=== PATIENT | male | born 1980 | race Two or more races ===

== ENCOUNTER 2024-09-09 08:09 | Emergency (ER) | payer SELFPAY ==
[2024-09-09 08:17] VITALS: BMI 22.7
--- NOTE | 2024-09-09 08:34 | EDNOTE_ITS ---
ED Medical Clearance RME/HPI General Chief complaint: General Adult/Misc Complain Stated complaint: MEDICAL CLEARANCE Time Seen by Provider: 09/09/24 08:18 Arrival date/time: 09/09/24 08:09 RME / HPI RME / HPI Narrative: 44 year old male presents to the ED [facility] for medical clearance for incarceration. Per officers, patient was noted to have elevated blood pressure reading in senior care and advised to come to the ED for clearance. While in the ED patient has no complaints and reports he would not have come to the ED otherwise. Review of Systems Review of Systems Systems Reviewed: All systems reviewed, normal except as documented Narrative Review of Systems: GEN: No fever, no chills EYES: No discharge, no pain HEENT: No ear pain, no congestion, no sore throat PULM: No shortness of breath, no cough, no congestion CV: No chest pain, no palpitations GI: No nausea, no vomiting, no diarrhea, no pain, no constipation : No frequency, no urgency, no dysuria MUSC/SKEL: No joint pain, no back pain SKIN: No rash NEURO: No weakness, no headache Past Medical History Social History SMOKING STATUS: Unknown if ever smoked ED Exam Narrative Physical exam: GENERAL APPEARANCE:? alert and oriented x 4, well-developed, well-nourished, no acute distress HEENT: normocephalic, atraumatic NECK: supple LUNGS: no respiratory distress, normal effort HEART: good peripheral perfusion ABDOMEN: non distended EXTREMITIES:? atraumatic NEUROLOGIC: awake; alert and oriented x4; cranial nerves II-XII grossly intact PSYCHIATRIC:? appropriate mood and affect SKIN: warm, dry, normal color; no rashes Course Quality Measures none Medical Clearance MDM Narrative [facility] Narrative:: Arlen Victor am scribing for and in the presence of Dr. Moya. Patient data External records reviewed:: [facility] previous records (Per EMR, there are no previous visits for review ) Clinical information provided by:: patient and law enforcement Social determinants that could affect healthcare access:: none Patient has the following chronic illnesses:: History unknown, patient did not report any chronic medical hx How is presenting disease/condition affected by chronic disease/condition?: no chronic disease Evaluation data The following diagnostics were reviewed and interpreted by me:: other (specify) (No diagnostic testing performed) Lab and/or radiology exams considered but not ordered:: None Interpretation Summary: N/A Medications / Prescriptions Medications or Prescriptions considered but not ordered:: None Medication administrations:: None Consultations Consultation(s) initiated? (list below): No Diagnosis Medical Clearance Differential Diagnosis: other (Hypertension, hypertensive urgency, hypertensive emergency) Most likely diagnosis given after review of the tests above:: Elevated blood pressure reading Admission Indicated Admission indicated?: not indicated Explain why admission is indicated or not indicated:: Does not meet admission criteria Admission Request Was there a request for admission?: No Disposition Plan Disposition Plan: Discharge Discharge Attestation Discharge Attestation: The patient and all family members were given an opportunity to ask questions and understood the discharge instructions. Discharge instructions specifically effects, indications for sooner follow up or return to the emergency department, and the expected course of current diagnosis. Patient condition: Stable Discharge Plan Plan Patient Disposition: [facility]/Court/Law Disposition Comment: Okay to book Problem List Clinical Impression: Elevated blood pressure reading Patient/Caregiver Discharge Instructions Education Materials: ED Hypertension, To Be Confirmed Print Language: Danish
[2024-09-09 10:26] VITALS: BP 164/111; PULSE 74; RESP 18; TEMP 36.6; O2SAT 94
== END 2024-09-09 10:37 ==
LOC: SERX 09:53
PROVIDERS: Emergency Provider Emergency Medicine
DX: Z02.89 Encounter for other administrative examinations (principal); R03.0 Elevated blood-pressure reading, without diagnosis of hypertension; Z65.3 Problems related to other legal circumstances
CPT/HCPCS: 99281